=== PATIENT | male | born 1955 | race Caucasian/White ===

== ENCOUNTER 2016-08-13 15:45 | Emergency (ER) | payer BC ==
[2016-08-13 17:12] LABS: ABSOLUTE NEUTROPHIL COUNT 5.7 K/mm3 (1.8-7.7); BASO # 0.1 K/mm3 (0.0-0.2); BASO % 0.7 % (0.2-1.0); EOS # 0.2 (0.0-0.5); EOS % 2.5 % (0.9-2.9); HEMATOCRIT 44.6 % (32.0-52.0); HEMOGLOBIN 14.7 gm/l (14.0-18.0); IMM NEUT% 0.4 % (0-1); LYMPH # 0.9 (1.0-4.8); MEAN CELL VOLUME 93.1 fl (80.0-94.0); MEAN CORPUSCULAR HEMOGLOBIN 30.7 pg (27.0-31.0); MEAN PLATELET VOLUME 10.2 fl (7.4-10.4); MONO # 0.3 (0.0-0.8); MONO % 4.5 % (4-12); NEUT % 78.9 % (43-75); PLATELET COUNT 160 K/mm3 (130-400); RED CELL DISTRIBUTION WIDTH 13.9 % (11.5-14.5)
[2016-08-13 17:21] LABS: INR 2.24; PROTHROMBIN TIME 24.6 SECONDS (9.3-11.4)
[2016-08-13 17:23] LABS: TROPONIN I < 0.01 ng/ml (0.0-0.06)
[2016-08-13 17:26] LABS: CKMB ISOENZYME 4.9 ng/ml (0.6-6.3)
[2016-08-13 17:27] LABS: ALB/GLOB RATIO 1.3 (>1.0); CALCIUM 8.8 mg/dL (8.6-10.3)
--- NOTE | 2016-08-13 17:30 | RAD ---
CHEST 2 VIEWS HISTORY: Cough and shortness of breath. Frontal and lateral chest radiographs dated 08/13/2016. COMPARISON: 06/25/2010 FINDINGS: FOCAL AIRSPACE OPACITY: Subsegmental atelectasis versus scar at the left midlung field. No gross airspace consolidation. Peribronchial cuffing. PLEURAL EFFUSION: None. CARDIOMEDIASTINAL SILHOUETTE: Nonenlarged. PNEUMOTHORAX: None identified. OSSEOUS STRUCTURES: No grossly destructive lesions. IMPRESSION: Scarring versus atelectasis of the left midlung field. Peribronchial cuffing may indicate bronchitis, atypical/from infection, or central airways disease. No ishmael airspace consolidation at this time.
[2016-08-13 17:32] LABS: THYROID STIMULATING HORMONE 1.42 uIU/ml (0.34-5.60)
[2016-08-13] MEDS ORDERED: PREDNISONE 20 MG TABLET ONE (17:37)
[2016-08-13] MEDS ORDERED: ALBUTEROL/IPRATROPIUM 2.5/0.5 MG 3 ML/EACH DOSE ONE ×2 (17:39→18:54)
[2016-08-13 17:55] LABS: URINE BILIRUBIN NEGATIVE (NEGATIVE); URINE BLOOD TRACE (NEGATIVE); URINE GLUCOSE (UA) NEGATIVE (NEGATIVE); URINE LEUKOCYTE ESTERASE NEGATIVE (NEGATIVE); URINE NITRITE NEGATIVE (NEGATIVE); URINE PROTEIN 2+ (NEGATIVE)
[2016-08-13 18:16] LABS: URINE APPEARANCE CLOUDY; URINE COLOR DARK YELLOW; URINE UROBILINOGEN 4 mg/dL (0-1 mg/dl)
[2016-08-13 18:18] LABS: URINE BACTERIA 0; URINE RBC 0-2 /hpf; URINE WBC 0-2 /hpf
== END 2016-08-13 19:47 | disposition home or self-care (01) ==
LOC: ED 15:45
DX: R05 Cough (principal); R06.2 Wheezing; R51 Headache; I48.91 Unspecified atrial fibrillation; I10 Essential (primary) hypertension; Z79.01 Long term (current) use of anticoagulants; F17.220 Nicotine dependence, chewing tobacco, uncomplicated; F17.210 Nicotine dependence, cigarettes, uncomplicated
CPT/HCPCS: 83880; 85025; 82550; 82553; 80053; 85610; 84443; 84484; 81001; 71020; 87804; 94640 ×2; 94667; 99284 ×2; 93005; J7512